=== PATIENT | female | born 1990 | race African-American/Black ===

== ENCOUNTER → 2021-07-20 | Emergency (ER) | payer BC, OTHER ==
[~2021-07-20] MED LIST: Iopamidol 300 61% 100 ML VIAL FS ONE; Ketorolac Tromethamine 30 MG/ML VIAL ONE; Morphine 2 MG/ML VIAL ONE; Ondansetron PF 4 MG/2 ML Vial ONE
[2021-07-20 21:28] LABS: #Basophils 0.1 10x3/uL (0.0-0.2); #Eosinphils 0.1 10x3/uL (0.0-0.5); #Monocytes 0.3 10x3/uL (0.0-1.1); #Neutrophils 2.8 10x3/uL (1.5-8.4); %Basophils 0.7 % (0.0-2.0); %Eosinophils 1.8 % (0.0-6.0); %Lymphocytes 52.9 % (18.0-47.0); %Monocytes 4.8 % (0.0-10.0); %Neutrophils 39.4 % (40.0-75.0); Hemoglobin 10.3 g/dL (12.0-15.5); Mean Corpuscular HGB CONC 32.3 g/dL (32.0-36.0); Mean Corpuscular Hemoglobin 26.7 pg (27.0-33.0); Mean Corpuscular Volume 82.6 fl (81.6-98.3); Mean Platelet Volume 11.1 fl (7.4-10.4); Platelet Count 289 10x3/uL (150-450); RBC Distribution Width 15.6 % (11.5-14.5); Red Blood Cell (RBC) Count 3.86 10x6/uL (3.90-5.03); White Blood Cell (WBC) Count 7.1 10x3/uL (3.5-10.5)
[2021-07-20 21:42] LABS: BHCG - Serum Negative (NEGATIVE); Pregs Control Background? CLEAR/WHITE (CLR/WHITE); Pregs Control Bar Appear? YES (CONTROL BAR)
[2021-07-20 21:47] LABS: ALT (SGPT) 35 U/L (8-55); AST (SGOT) 101 U/L (5-34); Acetaminophen Less than 10.0 mcg/mL (10.0-30.0); Albumin 4.2 g/dL (3.5-5.0); Alcohol 185 mg/dL (Less than 10); Alkaline Phosphatase 62 U/L (40-110); Anion Gap 18 mmol/L (10-20); BUN (Urea Nitrogen) 8 mg/dL (7.0-18.7); Bilirubin, Total 0.4 mg/dL (0.2-1.2); Calc. Creatinine Clearance 0 mL/min (70-130); Carbon Dioxide 21 mmol/L (22-29); Chloride 105 mmol/L (98-107); Globulin 3.7 g/dL (2.4-3.5); Glucose 117 mg/dL (70-105); Potassium 3.2 mmol/L (3.5-5.1); Protein, Total 7.9 g/dL (6.0-8.3); Salicylate Less than 8.0 mg/dL (15.0-30.0); Sodium 141 mmol/L (136-145)
[2021-07-20 21:51] LABS: Eosinophils 5 % (0-10); Lymphocytes 47 % (21-51); Monocytes 4 % (0-10); Neutrophil 40 % (42-75); Reactive Lymphocytes 3 % (0-10)
[2021-07-20 21:52] LABS: Anisocytosis SLIGHT = 6-15 cells (100X) (0-5/hpf); Hypochromia SLIGHT = 6-15 cells (100X) (0-5/hpf); Macrocytosis SLIGHT = 6-15 cells (100X) (0-5/hpf); Microcytosis SLIGHT = 6-15 cells (100X) (0-5/hpf); Platelet Morphology Comment Appears Adequate
== END | disposition home or self-care (01) ==
LOC: CSHERS 20:56
DX: S06.0X9A Concussion with loss of consciousness of unspecified duration, initial encounter (principal); S12.500A Unspecified displaced fracture of sixth cervical vertebra, initial encounter for closed fracture; S12.600A Unspecified displaced fracture of seventh cervical vertebra, initial encounter for closed fracture; S80.812A Abrasion, left lower leg, initial encounter; V49.9XXA Car occupant (driver) (passenger) injured in unspecified traffic accident, initial encounter
CPT/HCPCS: 70450; 71260; 72125; 74177; 80053; 80307; 83690; 84703; 85025; 93005; 96361; 96374; 96375; 96376; J1885; J2270; J2405; Q9967